=== PATIENT | male | born 1950 | race Caucasian/White ===

== ENCOUNTER → 2017-01-23 08:42 | Outpatient (CLI) | payer MEDICARE, OTHER | END | disposition home or self-care (01) | LOC: D.MRI 01-18 11:00 | DX: M17.11 Unilateral primary osteoarthritis, right knee (principal); M17.12 Unilateral primary osteoarthritis, left knee ==

== ENCOUNTER → 2017-07-30 17:40 | Outpatient (CLI) | payer MEDICARE, OTHER ==
[~2017-07-30 17:40] MED LIST: CELEXA10 MG PO; COZAAR25 MG PO; ELIQUIS2.5 MG PO; FLUTICASONE PRO16 GM NASAL; KEFLEX500 MG PO; LUNESTA2 M1 PO; MOBIC7.5 MG PO; OXYCODONE HCL5 MG PO; PAMELOR 25 MG C25 MG PO; PRAVACHOL40 MG PO; VITAMIN B-121000 MCG PO; ZOVIRAX400 MG PO; ZYRTEC10 MG PO
[2017-08-22 03:50] VITALS: BMI 32.2
== END | disposition home or self-care (01) ==
LOC: D.LABREF 17:40
DX: M17.11 Unilateral primary osteoarthritis, right knee (principal); Z11.8 Encounter for screening for other infectious and parasitic diseases

== ENCOUNTER 2017-08-15 10:00 | Inpatient (IN) | payer MEDICARE, OTHER ==
[~2017-08-15] VITALS: Ht 180.3 cm; Wt 105.0 kg
--- NOTE | ~2017-08-15 | OP ---
PATIENT NAME: GILES NGUYEN MEDICAL RECORD: [id number] LOCATION:[id number] ADMISSION DATE:08/21/17 SURGEON: ELIOT NARANJO DO DATE OF OPERATION: 08/21/2017 PROCEDURE PERFORMED: Right total knee. PREOPERATIVE DIAGNOSIS: Right knee osteoarthritis. POSTOPERATIVE DIAGNOSIS: Right knee osteoarthritis. INDICATIONS: Mr. Nguyen is a 66-year-old male that presented to my office after having MRIs and x-rays of his right knee. He has tried injections, which have not been successful. He was tired of dealing with the pain and having it affect his activities of daily living. He wanted his right knee done first and he was informed of the risks and benefits of this procedure. SURGEON: Eliot Naranjo DO ANESTHESIA: General anesthetic. TOURNIQUET TIME: 59 minutes. BLOOD LOSS: 150 mL. COMPLICATIONS: None. DESCRIPTION OF PROCEDURE: The patient was taken to the operative suite and after given a block by anesthesia, was laid in supine position, given general anesthetic and 2 grams of Ancef. Once this was done, the right lower extremity was prepped and draped in sterile fashion. Tourniquet was placed above the knee. A timeout was performed and everyone was in agreement with the timeout. TXA was also given at that time. The knee was then marked out and wrapped in [place]. The incision then commenced down to the capsule with a 10 blade scalpel and then capsulotomy was performed in a medial parapatellar approach. The patella was everted at that time with the knee in extension and milled down to the appropriate size. After this was done, attention was drawn to the distal femur. The distal femur was then cut after having an intramedullary guide put in the femur. Then the tibia was cut and the excess menisci and soft tissue was removed using a laminar carbide tool die maker and an Army-Emlyn with the knee in extension. The extension block to gap check was put into place and seemed to be a good size. The femur was then sized to be a 75. The cuts were made with a 4-in-1 block and then the trial was placed and the tibial tray was floated in and ranged and rotation was marked and this was then removed. The holes were drilled on the femur and then the tibia was addressed, sized to be an 83 and that was punched and rotation was checked with dropping a kayli down the medial side, seemed to align up well with the tibia. Once this was done, the tibia was punched and drilled and the cement was made and put on the tibial implant and then on the tibia. The tibia was pushed into place and then impacted a couple times with excess cement being removed and the femur was put into place. The press-fit femur was put in. Then, a 10 poly was put in between them and brought until they got to extension and then the patella that had been prepared was put into place and cemented. While the cement hardened, the tourniquet was let down at 57 minutes. Any bleeders were coagulated that time. This was sized and he had a little bit of anterior shuck, so we decided to do a deep-dish, 10 E poly OPERATIVE REPORT [id number] GILES NGUYEN and we did that and seemed to be a very good fit and a well balanced knee. Then, the knee was thoroughly irrigated. Suresh was put into the knee and the capsule was closed with [id number] stitches of #1 Vicryls. Then, the capsule was irrigated and Suresh was put into the capsule. The skin was closed with 2-0 Vicryls in inverted interrupted fashion and zipline placed over that on the skin and then Adaptic, 4 x 4s, ABDs, Webril and a 6-inch Yaron wrap were placed around the knee and then the PEDRO hose was placed up to the knee. The patient was awakened and taken to recovery in stable condition. TRANSINT:[id number] Voice Confirmation ID: [id number] DOCUMENT ID: [id number] ELIOT NARANJO DO at 1932 CC: [id number] DICTATION DATE: 08/21/17 1502 VP: 08/21/17 1529 ADM IN [facility] [address] [place] [address]
[~2017-08-15 10:00] MED LIST changes: -ELIQUIS2.5 MG PO; -KEFLEX500 MG PO; -OXYCODONE HCL5 MG PO
[2017-08-15 11:56] LABS: BASOPHILS 0 % (0-2); EOSINOPHILS 4.1 % (0-7); HEMATOCRIT 39.6 % (42.0-54.0); IMMATURE GRANULOCYTES 0.2 % (0-5); LYMPHOCYTES 33.7 % (15-50); MCH 33.3 pg (26.0-34.0); MCHC 35.4 g/dL (31.0-37.0); MCV 94.3 fL (80.0-100.0); MEAN PLATELET VOLUME 9.8 fL (7.4-10.4); MONOCYTES 8.3 % (2-11); NEUTROPHILS 53.7 % (40-80); PLATELET COUNT 166 10x3/uL (130-400); RDW 12.4 % (11.5-14.5); WBC 4.8 10x3/uL (4.8-10.8)
[2017-08-15 12:04] LABS: CALCIUM 8.8 mg/dL (8.5-10.1); CARBON DIOXIDE 27.9 mmol/L (21.0-32.0); CREATININE - SERUM 1.2 mg/dL (0.6-1.3); POTASSIUM - SERUM 3.9 mmol/L (3.5-5.1)
[2017-08-15 12:07] LABS: APTT 26.3 SECONDS (22.8-39.4); INR 1.03 (0.85-1.17); PROTIME 13.1 SECONDS (11.6-15.0)
[2017-08-15 12:22] LABS: APPEARANCE HAZY (CLEAR); BILIRUBIN NEGATIVE (NEGATIVE); COLOR DK YELLOW (YELLOW); GLUCOSE NEGATIVE (NEGATIVE); KETONE NEGATIVE (NEGATIVE); NITRITE NEGATIVE (NEGATIVE); PROTEIN NEGATIVE (NEGATIVE); SPECIFIC GRAVITY 1.025 (1.005-1.020); UROBILINOGEN NORMAL (NORMAL)
[2017-08-21 09:04] VITALS: BP 122/81; BMI 32.4
[2017-08-21 15:40] VITALS: BP 117/78
[2017-08-21 19:30] VITALS: BP 125/54
[2017-08-21 20:00] VITALS: BP 100/66
[2017-08-22 00:51] VITALS: BP 112/67
[2017-08-22 03:50] VITALS: Ht 180.3 cm; Wt 105.0 kg
[2017-08-22 04:00] VITALS: BP 107/74
[2017-08-22 05:45] LABS: BASOPHILS 0 % (0-2); EOSINOPHILS 0 % (0-7); HEMATOCRIT 36.5 % (42.0-54.0); HEMOGLOBIN 12.7 g/dL (13.5-17.5); IMMATURE GRANULOCYTES 0.2 % (0-5); LYMPHOCYTES 9.5 % (15-50); MCH 32.8 pg (26.0-34.0); MCHC 34.8 g/dL (31.0-37.0); MCV 94.3 fL (80.0-100.0); MEAN PLATELET VOLUME 9.9 fL (7.4-10.4); MONOCYTES 7.4 % (2-11); NEUTROPHILS 82.9 % (40-80); PLATELET COUNT 155 10x3/uL (130-400); RBC 3.87 10x6/uL (4.20-6.10); RDW 12.6 % (11.5-14.5); WBC 10.3 10x3/uL (4.8-10.8)
[2017-08-22 06:32] LABS: ALBUMIN 3.3 g/dL (3.4-5.0); ANION GAP 11.6 mmol/L (8-16); BILIRUBIN - TOTAL 0.29 mg/dL (0.2-1.3); CALCIUM 8.5 mg/dL (8.5-10.1); CARBON DIOXIDE 26.3 mmol/L (21.0-32.0); CREATININE - SERUM 1.1 mg/dL (0.6-1.3); POTASSIUM - SERUM 3.9 mmol/L (3.5-5.1); PROTEIN - SERUM 6.3 g/dL (6.4-8.2)
[2017-08-22 08:16] VITALS: BP 122/74
[2017-08-22 12:25] VITALS: BP 103/64
[2017-08-22 16:21] VITALS: BP 115/69
[2017-08-22 20:00] VITALS: BP 129/76
[2017-08-23] VITALS: BP 115/69
[2017-08-23 04:00] VITALS: BP 125/71
[2017-08-23] MEDS ORDERED: ELIQUIS2.5 MG PO (06:11)
[2017-08-23] MEDS ORDERED: OXYCODONE HCL5 MG PO (06:12)
[2017-08-23] MEDS ORDERED: KEFLEX500 MG PO (06:12)
[2017-08-23 06:33] LABS: HEMATOCRIT 32.3 % (42.0-54.0); HEMOGLOBIN 11.4 g/dL (13.5-17.5); LYMPHOCYTES 15.3 % (15-50); MCH 32.6 pg (26.0-34.0); MCHC 35.3 g/dL (31.0-37.0); MEAN PLATELET VOLUME 9.4 fL (7.4-10.4); RDW 12.3 % (11.5-14.5)
[2017-08-23 06:43] LABS: MCV 92.3 fL (80.0-100.0); PLATELET COUNT 113 10x3/uL (130-400); WBC 7.7 10x3/uL (4.8-10.8)
[2017-08-23 07:10] LABS: ALBUMIN 3.1 g/dL (3.4-5.0); ALKALINE PHOSPHATASE 64 U/L (46-116); ALT (SGPT) 24 U/L (10-68); CALC OSMOLALITY 280 mosm/kg (275-300); CALCIUM 8.6 mg/dL (8.5-10.1); CARBON DIOXIDE 27.5 mmol/L (21.0-32.0); CHLORIDE - SERUM 104 mmol/L (98-107); CREATININE - SERUM 0.9 mg/dL (0.6-1.3); GLUCOSE 118 mg/dL (74-106); POTASSIUM - SERUM 3.7 mmol/L (3.5-5.1); PROTEIN - SERUM 6.3 g/dL (6.4-8.2); SODIUM 140 mmol/L (136-145); UREA NITROGEN 16 mg/dL (7-18); eGFR NON AFRICAN AMERICAN 89 mL/min (90-120)
[2017-08-23 08:05] VITALS: BP 142/82
== END 2017-08-23 14:37 | disposition home or self-care (01) | DRG 470 ==
LOC: D.SDCHOLD 10:00 → D.MS 08-21 07:16 → D.SDCHOLD 08-21 07:16 → D.MS 08-21 15:19
PROVIDERS: Emergency Medicine; Orthopaedic Surgery
PROC: 0SRC0JA Replacement of Right Knee Joint with Synthetic Substitute, Uncemented, Open Approach (ICD-10-PCS; principal; 2017-08-21 09:45)
DX: M17.11 Unilateral primary osteoarthritis, right knee (principal); I10 Essential (primary) hypertension; G51.0 Bell's palsy

== ENCOUNTER → 2018-02-01 09:54 | Outpatient (CLI) | payer MEDICARE, OTHER ==
[2017-08-22 03:50] VITALS: BMI 32.2
[~2018-02-01 09:54] MED LIST changes: +ELIQUIS2.5 MG PO; +KEFLEX500 MG PO; +OXYCODONE HCL5 MG PO
[2018-02-01 17:49] LABS: EOS BF 3 %; MACROPHAGES BF 8 %; MESOTHELIALS BF 1 %; NEUT - BF 64 %
== END | disposition home or self-care (01) ==
LOC: D.LABREF 09:54
PROVIDERS: Nurse Practitioner Family
DX: M25.561 Pain in right knee (principal)

== ENCOUNTER → 2018-08-28 10:39 | Outpatient (CLI) | payer MEDICARE, OTHER ==
[2017-08-22 03:50] VITALS: BMI 32.2
== END | disposition home or self-care (01) ==
LOC: D.MRI 10:39
DX: M54.16 Radiculopathy, lumbar region (principal)

== ENCOUNTER → 2019-07-24 16:45 | Outpatient (CLI) | payer MEDICARE, OTHER ==
[2017-08-22 03:50] VITALS: BMI 32.2
[2019-07-24 17:52] LABS: BASOPHILS 0.2 % (0-2); EOSINOPHILS 5.9 % (0-7); HEMATOCRIT 42.3 % (42.0-54.0); HEMOGLOBIN 14.5 g/dL (13.5-17.5); IMMATURE GRANULOCYTES 0.2 % (0-5); LYMPHOCYTES 25.9 % (15-50); MCH 32.9 pg (26.0-34.0); MCHC 34.3 g/dL (31.0-37.0); MCV 95.9 fL (80.0-100.0); MEAN PLATELET VOLUME 9.6 fL (7.4-10.4); MONOCYTES 7.7 % (2-11); NEUTROPHILS 60.1 % (40-80); RBC 4.41 10x6/uL (4.20-6.10); RDW 12.4 % (11.5-14.5); WBC 5.2 10x3/uL (4.8-10.8)
[2019-07-24 17:53] LABS: PLATELET COUNT 163 10x3/uL (130-400)
[2019-07-24 18:54] LABS: ERYTHROCYTE SEDIMENTATION RATE 7 mm/hr (0-20)
== END | disposition home or self-care (01) ==
LOC: D.LABREF 16:45
PROVIDERS: ATTEND Orthopaedic Surgery
DX: M25.561 Pain in right knee (principal)